=== PATIENT | female | born 1950 | race Caucasian/White ===

== ENCOUNTER 2016-11-23 10:41 | Outpatient (CLI) | payer MEDICARE ==
[2016-11-26 13:20] LABS: METANEPHRINE UG/G CRT 92 ug/g CRT (0-300)
== END 2016-11-23 10:42 ==
LOC: LAB 10:41
PROVIDERS: ATTEND Physician Assistant
DX: D35.00 Benign neoplasm of unspecified adrenal gland (principal)
CPT/HCPCS: 81050; 83835; 84585

== ENCOUNTER 2017-06-02 14:20 | Outpatient (CLI) | payer MEDICARE ==
[2017-06-02 14:42] LABS: eGFR (African) > 60; eGFR (Non-African) > 60
== END 2017-06-02 14:21 ==
LOC: LABRHC 14:20
PROVIDERS: ATTEND Family Medicine
DX: E11.9 Type 2 diabetes mellitus without complications (principal); I10 Essential (primary) hypertension
CPT/HCPCS: 80053; 80061; 83036

== ENCOUNTER 2017-11-01 10:03 | Outpatient (CLI) | payer MEDICARE ==
[2017-11-01 10:10] LABS: BASOPHILS % 0.8 (0.0-1.5); EOSINOPHILS % 2.3 % (0.0-6.8); MEAN CORPUSCULAR HEMOGLOBIN 30.1 pg (28.0-34.0); MEAN CORPUSCULAR VOLUME 86.2 fl (80.0-100.0); MONOCYTES % 5.6 % (0.0-11.0)
[2017-11-01 10:31] LABS: eGFR (African) > 60; eGFR (Non-African) 43
== END 2017-11-01 10:05 ==
LOC: LABRHC 10:03
PROVIDERS: ATTEND Family Medicine
DX: E11.9 Type 2 diabetes mellitus without complications (principal); D64.9 Anemia, unspecified
CPT/HCPCS: 36415; 80053; 80061; 83036; 85025

== ENCOUNTER 2018-04-21 10:27 | Outpatient (CLI) | payer MEDICARE ==
[2018-04-21 11:28] LABS: MEAN CORPUSCULAR HEMOGLOBIN 29.4 pg (28.0-34.0)
[2018-04-21 11:29] LABS: BASOPHILS % 0.3 (0.0-1.5); EOSINOPHILS % 3.1 % (0.0-6.8); MONOCYTES % 5.5 % (0.0-11.0); NEUTROPHILS # 3.6 # k/uL (1.4-7.7)
[2018-04-21 12:55] LABS: eGFR (Non-African) > 60
== END 2018-04-21 10:30 ==
LOC: LAB 10:27
PROVIDERS: ATTEND Internal Medicine Nephrology
DX: E11.65 Type 2 diabetes mellitus with hyperglycemia (principal); I10 Essential (primary) hypertension; R60.0 Localized edema; R80.9 Proteinuria, unspecified; I06.9 Rheumatic aortic valve disease, unspecified; Z68.39 Body mass index [BMI] 39.0-39.9, adult
CPT/HCPCS: 36415; 80053; 80061; 83036; 84550; 85025

== ENCOUNTER 2018-09-23 08:30 | Outpatient (CLI) | payer MEDICARE ==
[2018-09-23 09:20] LABS: eGFR (Non-African) > 60
== END 2018-09-23 08:40 ==
LOC: LAB 08:30
PROVIDERS: ATTEND Internal Medicine Cardiovascular Disease
DX: I50.9 Heart failure, unspecified (principal)
CPT/HCPCS: 36415; 80048

== ENCOUNTER 2019-05-19 09:22 | Outpatient (CLI) | payer MEDICARE ==
[2019-05-19 10:07] LABS: eGFR (Non-African) 39
[2019-05-19 10:08] LABS: HDL 81 mg/dL (>40)
[2019-05-22 07:51] LABS: A1C 5.2 % (<5.7)
== END 2019-05-19 09:27 ==
LOC: LAB 09:22
PROVIDERS: ATTEND Family Medicine
DX: E11.9 Type 2 diabetes mellitus without complications (principal); I10 Essential (primary) hypertension
CPT/HCPCS: 36415; 80053; 80061; 83036

== ENCOUNTER 2019-06-30 12:53 | Outpatient (CLI) | payer MEDICARE ==
[2019-06-30 13:35] LABS: eGFR (Non-African) > 60
== END 2019-06-30 12:58 ==
LOC: LAB 12:53
PROVIDERS: ATTEND Family Medicine
DX: I10 Essential (primary) hypertension (principal)
CPT/HCPCS: 36415; 80048